=== PATIENT | female | born 1950 | race Caucasian/White ===

== ENCOUNTER 2024-05-23 11:40 | Emergency (ER) | payer OTHER, SELFPAY ==
[2024-05-23 12:11] VITALS: BP 188/86
[2024-05-23 12:29] LABS: % Basophils 1.1 % (0-2); % Eosinophils 1.7 % (0-6); % Immature Granulocytes 0.2 % (0-0.5); % Lymphocytes 19.9 % (20.5-51.1); % Monocytes 10.5 % (1.7-9.3); % Neutrophils 66.6 % (42.2-75.2); Absolute Basophils 0.1 10^3/uL (0-0.2); Absolute Eosinophils 0.1 10^3/uL (0-0.7); Absolute Lymphocytes 1.1 10^3/uL (1.2-3.4); Absolute Monocytes 0.6 10^3/uL (0.1-0.6); Absolute Neutrophils 3.6 10^3/uL (1.4-6.5); Hematocrit 36.5 % (37.0-47.0); Hemoglobin 11.9 g/dL (12.0-16.0); Mean Corp Hgb Conc. 32.6 g/dL (33.0-37.0); Mean Corpuscular Hgb 28.4 pg (27.0-31.0); Mean Corpuscular Volume 87.1 fL (81.0-99.0); Mean Platelet Volume 9.3 fL (7.4-10.4); Nucleated Red Blood Cells % 0 %; Platelet Count 210 10^3/uL (130-400); Red Blood Cell Count 4.19 10^6/uL (4.20-5.40); Red Cell Dist. Width 15.4 % (11.5-14.5); White Blood Cell Count 5.3 10^3/uL (4.8-10.8)
[2024-05-23 12:42] LABS: ALT (SGPT) 20 U/L (0-35); AST (SGOT) 25 U/L (14-36); Albumin 4.6 g/dl (3.5-5.0); Alkaline Phosphatase 88 U/L (38-126); Blood Urea Nitrogen 19 mg/dl (7-17); Calcium 9.6 mg/dl (8.4-10.2); Carbon Dioxide 26 mmol/L (22-30); Chloride 104 mmol/L (98-107); Glucose 97 mg/dl (70-99); Potassium 4.3 mmol/L (3.5-5.1); Sodium 138 mmol/L (135-145); Total Bilirubin 0.9 mg/dl (0.2-1.3); Total Protein 7.4 g/dl (6.3-8.2); eGFR 42.62
[2024-05-23 12:54] LABS: Troponin I < 0.012 ng/ml
[2024-05-23 14:09] VITALS: BP 175/85
[2024-05-23 17:03] VITALS: BMI 27.5
[2024-05-23 17:07] VITALS: BP 160/87
--- NOTE | 2024-05-23 18:38 | ED.GENMED ---
History of Present Illness
General
Chief Complaint: Chest Pain
Time Seen by Provider: 05/23/24 17:58
History of Present Illness
History of Present Illness:
74-year-old female with history of hypertension, CAD status post stenting, presenting to the emergency department with concern of elevated blood pressure. Patient was set to see physical therapy today due to issues that she has been having with her
leg and her left shoulder. Prior to the initiation of the treatment, her blood pressure was checked, noted to be elevated so patient was told to come to the ER. Patient denies any chest pain. Does note that she has had persistent left shoulder
pain. Denies any difficulty breathing. Does note that she did not take her blood pressure medication this morning. Denies abdominal pain or GI symptoms. She is currently asymptomatic.
Past History
Past History
ED Past Medical History: HTN, Hypercholesterolemia and Psychiatric
ED Past Surgical History: Cholecystectomy, Orthopedic (right shoulder, bilateral hips) and Other (Breast reduction)
Social History
Tobacco: Non-smoker
Alcohol: Occasional
Drug: None
Personal:
Living: with family
Phy Exam
Physical Exam
Physical Exam:
General: Well-appearing, no clinical signs of dehydration, nontoxic and in no acute distress
HEENT: protecting airway
Neck: appears supple
CV: Normal heart rate, regular rhythm
Resp: No accessory muscle use, no increased work of breathing, lungs clear to auscultation bilaterally
Abd: no distension
Extremities: No deformities, no swelling
Neuro: alert, no focal neurologic deficit
: deferred
Rectal: deferred
Psych: Normal affect
Skin: Intact
Scores
Heart Score for Chest Pain Patients
STEMI patient?: No
History: Slightly or Non-Suspicious
ECG: Normal
Age: >/= 65 years
Risk Factors: 1 or 2 Risk Factors
Troponin: </= Normal Limit
Heart Score for Chest Pain Patients: 3
Heart Score Risk: 2.5% MACE over next 6 weeks
Course
Orders/Labs/Results
Orders:
Orders
05/23/24 11:41
EKG [Electrocardiogram (*1)] Urgent
Reason for Study: Chest Pain
05/23/24 11:42
EKG- Treatment ONCE
05/23/24 12:19
Complete Blood Count/With Diff Urgent
Comprehensive Metabolic Panel Urgent
Troponin I Urgent
Abnormal Lab Results
05/23/24
12:19
RBC 4.19 L 10^6/uL
(4.20-5.40)
Hgb 11.9 L g/dL
(12.0-16.0)
Hct 36.5 L %
(37.0-47.0)
MCHC 32.6 L g/dL
(33.0-37.0)
RDW 15.4 H %
(11.5-14.5)
Absolute Lymphs (auto) 1.1 L 10^3/uL
(1.2-3.4)
Lymphocytes % 19.9 L %
(20.5-51.1)
Monocytes % 10.5 H %
(1.7-9.3)
BUN 19 H mg/dl
(7-17)
Creatinine 1.3 H mg/dL
(0.6-1.0)
05/23/24 12:19
05/23/24 12:19
Vital Signs
Initial and Last Documented VS:
Initial Vital Signs
Temp Pulse Resp BP Pulse Ox
98.1 F 75 16 188/86 97
05/23/24 12:11 05/23/24 12:11 05/23/24 12:11 05/23/24 12:11 05/23/24 12:11
Last Documented Vital Signs
Temp Pulse Resp BP Pulse Ox
98.1 F 68 18 160/87 97
05/23/24 17:07 05/23/24 17:07 05/23/24 17:07 05/23/24 17:07 05/23/24 17:07
MDM/Problems Addressed
MDM/Problems Addressed:
74-year-old female with history of CAD status post stenting and hypertension presenting from physical therapy for concern of elevated blood pressure. Vital signs on arrival are significant for high blood pressure. However, patient notes she did
not take her blood pressure medication this morning.
On exam patient is resting comfortably, no acute distress, asymptomatic. Unremarkable cardiac and pulmonary exam. EKG obtained on arrival, nonischemic without changes from prior EKG. Labs obtained prior to my assessment, undetectable troponin.
At this time without present suspicion for hypertensive urgency or emergency, or ACS. Patient notes that she has been having this ongoing left shoulder pain, suspected component of arthritis rather than ACS equivalent. Feel stable for discharge
with continued outpatient physical therapy follow-up. Advised that she take her blood pressure medication. Return precautions discussed and patient verbalized understanding
*EKG
Interpreted by ED Provider?: Yes
EKG Intrepretation Date: 05/23/24
EKG Intrepretation Time: 18:47
Interpretation: normal
Comparison EKG: no changes (01/08/22)
Heart Rate: 75
Rate: normal
Rhythm: sinus
Ayden: normal axis
Interval: normal interval
QRS Pattern: normal QRS
Ischemia: no ischemia
*Critical Care Note
Total Time (30-74mins, 75-104mins- exclusive of procedures): Not Applicable
ED Attending Note
-
Portions of this chart may have been created with voice recognition software.� Occasional wrong word or��sound alike� substitutions may have occurred due to the inherent limitations of voice recognition software.
Discharge Plan
Departure
Patient Disposition: Home (Routine Discharge)
Date of Disposition: 05/23/24
Time of Disposition: 18:36
Patient with high blood pressure during this ER visit?: Yes
Condition: Good
Discharge Problem:
HTN (hypertension)
Instructions: BLOOD PRESSURE
Prescriptions:
No Action
losartan 50 mg Tablet
50 mg PO DAILY
bupropion HCl 75 mg Tablet
75 mg PO DAILY
cholecalciferol (vitamin D3) [Vitamin D3] 25 mcg (1,000 unit) Capsule
25 mcg PO DAILY
escitalopram oxalate 20 mg Tablet
20 mg PO DAILY
ezetimibe 10 mg Tablet
10 mg PO DAILY
omega-3 fatty acids Capsule
1,000 mg PO DAILY
aspirin 81 mg Capsule
81 mg PO DAILY
nitroglycerin 0.4 mg Tablet, Sublingual
0.4 mg SUBLINGUAL Q5-15M PRN (Reason: chest pain)
Brilinta 90 mg Tablet
90 mg PO BID Qty: 180 5RF
rosuvastatin 5 mg Tablet
5 mg PO DAILY Qty: 0 0RF
Activity Restrictions/Additional Instructions:
You were seen in the emergency department for elevated blood pressure
You were found to have normal blood work and EKG. Please continue to follow-up with your doctor and take your blood pressure medication as prescribed.
Please follow-up closely with your primary care physician.
Return to the emergency department for any worsening of your symptoms, or any development of chest pain, difficulty breathing, abdominal pain with persistent vomiting and inability to tolerate food or liquid by mouth (concern for dehydration),
weakness, headache or confusion, fever greater than 100.4, or any additional symptoms that are concerning to you.
Thank you for choosing [facility].
Interventions
Interventions:
*Risk Screen - Suicide Last Done: 05/23/24 12:13
*General Assessment Last Done: 05/23/24 17:04
*Neglect/Abuse Screening Last Done: 05/23/24 12:13
*ED COVID-19 Vaccine History Last Done: 05/23/24 17:04
*Nursing Disposition Last Done: 05/23/24 18:42
ED- Cardiac Assessment Last Done: 05/23/24 17:09
Discharge Date and Time
Print Language: FRISIAN
== END 2024-05-23 18:42 | disposition home or self-care (01) ==
LOC: EMR 11:40
PROVIDERS: Emergency Medicine; EMERGENCY PHYSICIAN Student in an Organized Health Care Education/Training Program
DX: I10 Essential (primary) hypertension (principal); I25.10 Atherosclerotic heart disease of native coronary artery without angina pectoris; Z90.49 Acquired absence of other specified parts of digestive tract; Z95.5 Presence of coronary angioplasty implant and graft; E78.00 Pure hypercholesterolemia, unspecified
CPT/HCPCS: 99283; 80053; 84484; 85025; 93005